=== PATIENT | male | born 1990 | race African-American/Black ===

== ENCOUNTER 2017-01-19 14:54 | Emergency (ER) | payer BC ==
[~2017-01-19] VITALS: Ht 172.7 cm; Wt 80.0 kg
[2017-01-19 15:09] VITALS: BP 141/95
[2017-01-19] MEDS ORDERED: KETOROLAC 60MG/2ML VIAL IM ONE (15:30)
== END 2017-01-19 17:14 | disposition home or self-care (01) ==
LOC: ER 15:55
DX: S93.401A Sprain of unspecified ligament of right ankle, initial encounter (principal); F12.10 Cannabis abuse, uncomplicated; F10.21 Alcohol dependence, in remission; W50.0XXA Accidental hit or strike by another person, initial encounter; Y93.67 Activity, basketball; Y92.39 Other specified sports and athletic area as the place of occurrence of the external cause
CPT/HCPCS: 73610; 73630; 96372; 99284; J1885